=== PATIENT | female | born 1940 | race African-American/Black ===

== ENCOUNTER 2024-04-21 15:59 | Emergency (ER) | payer BC ==
[~2024-04-21] VITALS: Ht 165.1 cm; Wt 60.0 kg
[~2024-04-21 15:59] MED LIST: MELO-105 MT
[2024-04-21 16:03] VITALS: O2SAT 99
[2024-04-21 19:56] VITALS: BP 125/66; PULSE 68; RESP 18; TEMP 37.22520; O2SAT 99
== END 2024-04-21 19:58 | disposition home or self-care (01) ==
LOC: ER 15:59
DX: B34.9 Viral infection, unspecified (principal); E78.00 Pure hypercholesterolemia, unspecified; I10 Essential (primary) hypertension; Z88.2 Allergy status to sulfonamides; Z20.822 Contact with and (suspected) exposure to COVID-19
CPT/HCPCS: 71046; 87426; 99284